=== PATIENT | male | born 1970 | race Caucasian/White ===

== ENCOUNTER 2018-04-10 16:52 | Inpatient (IN) | payer MEDICAID ==
[~2018-04-10] VITALS: Ht 182.9 cm; Wt 60.2 kg
[2018-04-10] MEDS ORDERED: LORazepam 2 MG/ML VIAL IM ONE (18:00)
[2018-04-10] MEDS ORDERED: HALOPERIDOL LACTATE 5 MG/ML VIAL IM ONE (18:00)
[2018-04-10] MEDS ORDERED: DiphenhydrAMINE HCL 50 MG/ML VIAL IM ONE (18:00)
[2018-04-10 18:23] LABS: BASOPHILS % (AUTO) 1.1 % (0.0-2.0); EOSINOPHILS % (AUTO) 1.4 % (1.0-6.0); HEMATOCRIT 38.4 % (41-53); LYMPHOCYTES # (AUTO) 2.5 K/uL (1.0-4.8); LYMPHOCYTES % (AUTO) 29.3 % (22.0-44.0); MEAN CORPUSCULAR HEMOGLOBIN 29.8 pg (26.0-34.0); MEAN CORPUSCULAR HGB CONC 33.8 G/dL (31.0-37.0); MEAN CORPUSCULAR VOLUME 88 fL (80-100); MONOCYTES # (AUTO) 0.8 K/uL (0.1-1.0); MONOCYTES % (AUTO) 8.7 % (2.0-9.0); NEUTROPHILS # (AUTO) 5.2 K/uL (1.8-7.7); NEUTROPHILS % (AUTO) 59.5 % (40.0-70.0); PLATELET COUNT (AUTO) 203 K/uL (150-450); RED BLOOD CELL COUNT(AUTO) 4.36 MIL/uL (4.50-5.90); RED CELL DISTRIBUTION WIDTH 13.6 % (11.5-14.5)
[2018-04-10] MEDS ORDERED: ZOLPIDEM TARTRATE 10 MG TABLET PO PRN (18:45)
[2018-04-10 18:54] LABS: ANION GAP 13 mmol/L (8-16); CALCIUM, TOTAL 9.3 mg/dL (8.8-10.5); CARBON DIOXIDE 27 mmol/L (22-29); CHLORIDE 104 mmol/L (98-107); CREATININE 1.07 mg/dL (0.60-1.30); GLOMERULAR FILTR. RATE CALC > 60 mL/min (>60); GLUCOSE,RANDOM 81 mg/dL (70-110); POTASSIUM 4.2 mmol/L (3.5-5.1); SODIUM SERUM 144 mmol/L (136-145); UREA NITROGEN, BLOOD 16 mg/dL (7-18)
[2018-04-10 18:59] LABS: ALANINE AMINOTRANSFERASE 72 U/L (12-78); ALBUMIN 4.4 g/dL (3.4-5.0); ALKALINE PHOSPHATASE 88 U/L (46-116); ASPARTATE AMINOTRANSFERASE 120 U/L (15-37); BILIRUBIN,TOTAL 0.7 mg/dL (0.1-1.0); TOTAL PROTEIN, SERUM 7.6 g/dL (6.4-8.2)
[2018-04-10] MEDS ORDERED: IBUPROFEN 400 MG TABLET PO PRN (19:00)
[2018-04-10] MEDS ORDERED: ACETAMINOPHEN 325 MG TABLET PO PRN (19:00)
[2018-04-11 00:32] VITALS: BP 115/59
[2018-04-11] MEDS ORDERED: LOPERAMIDE HCL 2 MG CAPSULE PO PRN (07:00)
[2018-04-11] MEDS ORDERED: GuaiFENesin/D-METHORPHAN [SUGAR-FREE] 200-20MG/10 ML SYRUP UDCUP PO PRN (07:00)
[2018-04-11] MEDS ORDERED: ACETAMINOPHEN 325 MG TABLET PO PRN (07:00)
[2018-04-11] MEDS ORDERED: IBUPROFEN 400 MG TABLET PO PRN (07:00)
[2018-04-11] MEDS ORDERED: MAGNESIUM HYDROXIDE SUSPENSION 30 ML UDCUP PO PRN (07:00)
[2018-04-11] MEDS ORDERED: ONDANSETRON HCL 4 MG TABLET PO PRN (07:00)
[2018-04-11] MEDS ORDERED: DOCUSATE SODIUM 100 MG CAPSULE PO PRN (07:00)
[2018-04-11] MEDS ORDERED: ALBUTEROL SULFATE HFA 90 MCG/PUFF 8 GM INHALER IH PRN (07:00)
[2018-04-11] MEDS ORDERED: CloNIDine HCL 0.1 MG TABLET PO PRN (07:00)
[2018-04-11] MEDS ORDERED: PETROLATUM,WHITE 71 GM JELLY TP PRN (07:00)
[2018-04-11] MEDS ORDERED: MAG HYDROX/AL HYDROX/SIMETH ES 30 ML SUSPENSION UDCUP PO PRN (07:00)
[2018-04-11 08:08] VITALS: BP 112/64
[2018-04-11 08:47] LABS: EOSINOPHILS % (AUTO) 2.8 % (1.0-6.0); HEMATOCRIT 43.7 % (41-53); HEMOGLOBIN 14.5 g/dL (13.5-17.5); LYMPHOCYTES # (AUTO) 2.1 K/uL (1.0-4.8); LYMPHOCYTES % (AUTO) 38.4 % (22.0-44.0); MEAN CORPUSCULAR HEMOGLOBIN 29.8 pg (26.0-34.0); MEAN CORPUSCULAR HGB CONC 33.3 G/dL (31.0-37.0); MEAN CORPUSCULAR VOLUME 90 fL (80-100); MONOCYTES # (AUTO) 0.4 K/uL (0.1-1.0); MONOCYTES % (AUTO) 7.3 % (2.0-9.0); NEUTROPHILS # (AUTO) 2.8 K/uL (1.8-7.7); NEUTROPHILS % (AUTO) 50.5 % (40.0-70.0); PLATELET COUNT (AUTO) 223 K/uL (150-450); RED BLOOD CELL COUNT(AUTO) 4.87 MIL/uL (4.50-5.90); RED CELL DISTRIBUTION WIDTH 14.1 % (11.5-14.5)
[2018-04-11 08:56] LABS: HEMOGLOBIN A1C 5.3 % (4.5-6.2)
[2018-04-11 09:12] LABS: ALANINE AMINOTRANSFERASE 76 U/L (12-78); ALBUMIN 4.6 g/dL (3.4-5.0); ALKALINE PHOSPHATASE 85 U/L (46-116); ANION GAP 7 mmol/L (8-16); ASPARTATE AMINOTRANSFERASE 119 U/L (15-37); BILIRUBIN,TOTAL 0.9 mg/dL (0.1-1.0); CALCIUM, TOTAL 9.1 mg/dL (8.8-10.5); CARBON DIOXIDE 31 mmol/L (22-29); CHLORIDE 103 mmol/L (98-107); CHOL/HDL RATIO 1.7 (4.2-7.3); CHOLESTEROL 152 mg/dL (131-200); CREATININE 0.84 mg/dL (0.60-1.30); GLOMERULAR FILTR. RATE CALC > 60 mL/min (>60); GLUCOSE,RANDOM 81 mg/dL (70-110); HDL CHOLESTEROL 90 mg/dL (40-60); LDL CHOL (CALC.) 55 mg/dL (0-130); POTASSIUM 3.8 mmol/L (3.5-5.1); SODIUM SERUM 141 mmol/L (136-145); THYROID STIMULATING HORMONE 1.77 uIU/mL (0.36-3.74); TOTAL PROTEIN, SERUM 7.9 g/dL (6.4-8.2); TRIGLYCERIDES 37 mg/dL (15-150); UREA NITROGEN, BLOOD 16 mg/dL (7-18)
[2018-04-11] MEDS: HALOPERIDOL 5 MG TABLET PO PRN ×3 (12:24→20:43)
[2018-04-11] MEDS: LORazepam 2 MG TABLET PO PRN ×3 (12:24→20:44)
[2018-04-11 16:41] VITALS: BP 122/81
[2018-04-11] MEDS: NICOTINE 14 MG/24 HOUR PATCH TD PRN (20:14)
[2018-04-11 20:43] VITALS: BP 118/82
[2018-04-11] MEDS ORDERED: PALIPERIDONE 3 MG ER TABLET PO SCH (21:00)
[2018-04-12 04:27] VITALS: BP 115/68
[2018-04-12 08:10] VITALS: BP 107/67
[2018-04-12] MEDS: NICOTINE 14 MG/24 HOUR PATCH TD PRN (09:50)
[2018-04-12 16:00] VITALS: BP 108/81
[2018-04-12] MEDS: PALIPERIDONE 3 MG ER TABLET PO SCH (20:54)
[2018-04-13 01:44] VITALS: BP 105/68
[2018-04-13 08:12] VITALS: BP 121/61
[2018-04-13] MEDS: LORazepam 2 MG TABLET PO PRN ×2 (09:06→16:13)
[2018-04-13] MEDS: HALOPERIDOL 5 MG TABLET PO PRN ×2 (09:06→16:13)
[2018-04-13] MEDS: NICOTINE 14 MG/24 HOUR PATCH TD PRN (10:43)
[2018-04-13 16:31] VITALS: BP 112/62
[2018-04-13] MEDS: PALIPERIDONE 3 MG ER TABLET PO SCH (20:33)
[2018-04-14 02:00] VITALS: BP 116/71
[2018-04-14 08:35] VITALS: BP 109/72
[2018-04-14] MEDS ORDERED: PALI3 PO (09:24)
[2018-04-14] MEDS ORDERED: PALI6 PO (09:52)
== END 2018-04-14 10:40 | disposition home or self-care (01) | DRG 750 ==
LOC: EMS 16:53 → B3A 22:38
PROVIDERS: ADMIT Psychiatry & Neurology Psychiatry; ATTEND Psychiatry & Neurology Psychiatry
DX: F20.0 Paranoid schizophrenia (principal); R74.0 Nonspecific elevation of levels of transaminase and lactic acid dehydrogenase [LDH]; D64.9 Anemia, unspecified; Z59.0 Homelessness; F17.210 Nicotine dependence, cigarettes, uncomplicated; R45.87 Impulsiveness
CPT/HCPCS: 80074; 83036; 84443; 96372; G0480; J1200; J1630; J2060

== ENCOUNTER 2018-04-17 10:08 | Emergency (ER) | payer MEDICAID ==
[~2018-04-17] VITALS: Ht 177.8 cm; Wt 74.0 kg
[~2018-04-17 10:08] MED LIST: PALI3 PO; PALI6 PO
[2018-04-17 11:41] VITALS: BP 115/87
== END 2018-04-17 11:42 | disposition home or self-care (01) ==
LOC: EMS 10:09
DX: F20.9 Schizophrenia, unspecified (principal); F17.210 Nicotine dependence, cigarettes, uncomplicated; F15.10 Other stimulant abuse, uncomplicated; Z79.899 Other long term (current) drug therapy
CPT/HCPCS: 99406

== ENCOUNTER 2018-04-17 12:03 | Inpatient (IN) | payer MEDICAID ==
[~2018-04-17] VITALS: Ht 172.7 cm; Wt 65.3 kg
[2018-04-17] MEDS ORDERED: HALOPERIDOL LACTATE 5 MG/ML VIAL IM ONE (12:15)
[2018-04-17] MEDS ORDERED: LORazepam 2 MG/ML VIAL IM ONE (12:15)
[2018-04-17] MEDS ORDERED: DiphenhydrAMINE HCL 50 MG/ML VIAL IM ONE (12:15)
[2018-04-17 12:30] LABS: BASOPHILS % (AUTO) 0.6 % (0.0-2.0); EOSINOPHILS % (AUTO) 0.3 % (1.0-6.0); HEMATOCRIT 37.9 % (41-53); HEMOGLOBIN 12.8 g/dL (13.5-17.5); LYMPHOCYTES # (AUTO) 1.1 K/uL (1.0-4.8); LYMPHOCYTES % (AUTO) 16.3 % (22.0-44.0); MEAN CORPUSCULAR HEMOGLOBIN 29.9 pg (26.0-34.0); MEAN CORPUSCULAR HGB CONC 33.7 G/dL (31.0-37.0); MEAN CORPUSCULAR VOLUME 89 fL (80-100); MONOCYTES # (AUTO) 0.5 K/uL (0.1-1.0); MONOCYTES % (AUTO) 7.7 % (2.0-9.0); NEUTROPHILS % (AUTO) 75.1 % (40.0-70.0); PLATELET COUNT (AUTO) 180 K/uL (150-450); RED BLOOD CELL COUNT(AUTO) 4.26 MIL/uL (4.50-5.90); RED CELL DISTRIBUTION WIDTH 13.8 % (11.5-14.5)
[2018-04-17 12:39] LABS: ANION GAP 11 mmol/L (8-16); CALCIUM, TOTAL 9.1 mg/dL (8.8-10.5); CARBON DIOXIDE 27 mmol/L (22-29); CHLORIDE 100 mmol/L (98-107); CREATININE 0.85 mg/dL (0.60-1.30); GLOMERULAR FILTR. RATE CALC > 60 mL/min (>60); GLUCOSE,RANDOM 86 mg/dL (70-110); POTASSIUM 3.5 mmol/L (3.5-5.1); SODIUM SERUM 138 mmol/L (136-145); UREA NITROGEN, BLOOD 24 mg/dL (7-18)
[2018-04-17 12:45] LABS: ALANINE AMINOTRANSFERASE 47 U/L (12-78); ALBUMIN 4.3 g/dL (3.4-5.0); ALKALINE PHOSPHATASE 85 U/L (46-116); ASPARTATE AMINOTRANSFERASE 55 U/L (15-37); BILIRUBIN,TOTAL 0.6 mg/dL (0.1-1.0); TOTAL PROTEIN, SERUM 7.4 g/dL (6.4-8.2)
[2018-04-17 13:20] LABS: LITHIUM < 0.20 mmol/L (0.60-1.20)
[2018-04-17] MEDS ORDERED: ACETAMINOPHEN 325 MG TABLET PO PRN (13:45)
[2018-04-17] MEDS ORDERED: IBUPROFEN 400 MG TABLET PO PRN ×2 (13:45→17:15)
[2018-04-17 16:44] VITALS: BP 130/78
[2018-04-17] MEDS ORDERED: CloNIDine HCL 0.1 MG TABLET PO PRN (17:15)
[2018-04-17] MEDS ORDERED: MAGNESIUM HYDROXIDE SUSPENSION 30 ML UDCUP PO PRN (17:15)
[2018-04-17] MEDS ORDERED: ONDANSETRON HCL 4 MG TABLET PO PRN (17:15)
[2018-04-17] MEDS ORDERED: PETROLATUM,WHITE 71 GM JELLY TP PRN (17:15)
[2018-04-17] MEDS ORDERED: LOPERAMIDE HCL 2 MG CAPSULE PO PRN (17:15)
[2018-04-17] MEDS ORDERED: GuaiFENesin/D-METHORPHAN [SUGAR-FREE] 200-20MG/10 ML SYRUP UDCUP PO PRN (17:15)
[2018-04-17] MEDS ORDERED: ALBUTEROL SULFATE HFA 90 MCG/PUFF 8 GM INHALER IH PRN (17:15)
[2018-04-17] MEDS ORDERED: MAG HYDROX/AL HYDROX/SIMETH ES 30 ML SUSPENSION UDCUP PO PRN (17:15)
[2018-04-17] MEDS ORDERED: DOCUSATE SODIUM 100 MG CAPSULE PO PRN (17:15)
[2018-04-18 06:29] VITALS: BP 108/65
[2018-04-18] MEDS: HALOPERIDOL 5 MG TABLET PO PRN ×2 (08:02→16:09)
[2018-04-18] MEDS: LORazepam 2 MG TABLET PO PRN ×2 (08:02→16:09)
[2018-04-18 08:03] VITALS: BP 110/68
[2018-04-18 08:29] LABS: BASOPHILS % (AUTO) 0.8 % (0.0-2.0); EOSINOPHILS % (AUTO) 2.1 % (1.0-6.0); HEMATOCRIT 43.4 % (41-53); HEMOGLOBIN 14.7 g/dL (13.5-17.5); LYMPHOCYTES # (AUTO) 1.9 K/uL (1.0-4.8); LYMPHOCYTES % (AUTO) 34.6 % (22.0-44.0); MEAN CORPUSCULAR HEMOGLOBIN 30.2 pg (26.0-34.0); MEAN CORPUSCULAR HGB CONC 33.8 G/dL (31.0-37.0); MEAN CORPUSCULAR VOLUME 89 fL (80-100); MONOCYTES # (AUTO) 0.5 K/uL (0.1-1.0); MONOCYTES % (AUTO) 8.8 % (2.0-9.0); NEUTROPHILS % (AUTO) 53.7 % (40.0-70.0); PLATELET COUNT (AUTO) 218 K/uL (150-450); RED BLOOD CELL COUNT(AUTO) 4.86 MIL/uL (4.50-5.90); RED CELL DISTRIBUTION WIDTH 13.9 % (11.5-14.5)
[2018-04-18 08:40] LABS: HEMOGLOBIN A1C 5.5 % (4.5-6.2)
[2018-04-18 08:52] LABS: ALANINE AMINOTRANSFERASE 57 U/L (12-78); ALBUMIN 4.5 g/dL (3.4-5.0); ALKALINE PHOSPHATASE 93 U/L (46-116); ANION GAP 11 mmol/L (8-16); ASPARTATE AMINOTRANSFERASE 92 U/L (15-37); BILIRUBIN,TOTAL 0.8 mg/dL (0.1-1.0); CARBON DIOXIDE 28 mmol/L (22-29); CHLORIDE 98 mmol/L (98-107); CHOL/HDL RATIO 1.8 (4.2-7.3); CHOLESTEROL 171 mg/dL (131-200); CREATININE 0.69 mg/dL (0.60-1.30); GLOMERULAR FILTR. RATE CALC > 60 mL/min (>60); GLUCOSE,RANDOM 58 mg/dL (70-110); HDL CHOLESTEROL 93 mg/dL (40-60); LDL CHOL (CALC.) 74 mg/dL (0-130); POTASSIUM 3.6 mmol/L (3.5-5.1); SODIUM SERUM 137 mmol/L (136-145); THYROID STIMULATING HORMONE 1.79 uIU/mL (0.36-3.74); TRIGLYCERIDES 20 mg/dL (15-150); UREA NITROGEN, BLOOD 17 mg/dL (7-18)
[2018-04-18 16:00] VITALS: BP 116/67
[2018-04-18] MEDS: NICOTINE 14 MG/24 HOUR PATCH TD PRN (16:10)
[2018-04-18] MEDS ORDERED: PALIPERIDONE 6 MG ER TABLET PO SCH (21:00)
[2018-04-19 00:51] VITALS: BP 110/62
[2018-04-19 08:42] VITALS: BP 103/67
[2018-04-19] MEDS: NICOTINE 14 MG/24 HOUR PATCH TD PRN (11:00)
[2018-04-19 16:15] VITALS: BP 109/80
[2018-04-19] MEDS: HALOPERIDOL 5 MG TABLET PO PRN (16:25)
[2018-04-19] MEDS: LORazepam 2 MG TABLET PO PRN ×2 (16:25→20:43)
[2018-04-19 17:10] VITALS: BP 109/80
[2018-04-19] MEDS: ZOLPIDEM TARTRATE 10 MG TABLET PO PRN (20:43)
[2018-04-19] MEDS: PALIPERIDONE 3 MG ER TABLET PO SCH (20:43)
[2018-04-20 01:16] VITALS: BP 112/64
[2018-04-20 08:02] VITALS: BP 122/74
[2018-04-20] MEDS: NICOTINE 14 MG/24 HOUR PATCH TD SCH (08:07)
[2018-04-20] MEDS: LORazepam 2 MG TABLET PO PRN (08:07)
[2018-04-20] MEDS: HALOPERIDOL 5 MG TABLET PO PRN (08:08)
[2018-04-20 16:32] VITALS: BP 107/78
[2018-04-20] MEDS: PALIPERIDONE 3 MG ER TABLET PO SCH (20:35)
[2018-04-21 05:35] VITALS: BP 102/75
[2018-04-21 08:03] VITALS: BP 110/74
[2018-04-21] MEDS: LORazepam 2 MG TABLET PO PRN (08:04)
[2018-04-21] MEDS: NICOTINE 14 MG/24 HOUR PATCH TD SCH (08:04)
[2018-04-21] MEDS: HALOPERIDOL 5 MG TABLET PO PRN (08:04)
[2018-04-21 16:00] VITALS: BP 106/72
[2018-04-21] MEDS: PALIPERIDONE 3 MG ER TABLET PO SCH (20:02)
[2018-04-22 02:08] VITALS: BP 118/71
[2018-04-22 08:12] VITALS: BP 106/73
[2018-04-22] MEDS: NICOTINE 14 MG/24 HOUR PATCH TD SCH (08:13)
[2018-04-22] MEDS: LORazepam 2 MG TABLET PO PRN ×2 (09:54→20:15)
[2018-04-22] MEDS ORDERED: PALIPERIDONE PALMITATE 234 MG/1.5 ML SYRINGE IM SCH (12:00)
[2018-04-22 16:00] VITALS: BP 112/68
[2018-04-22] MEDS: ZOLPIDEM TARTRATE 10 MG TABLET PO PRN (20:15)
[2018-04-22] MEDS: PALIPERIDONE 6 MG ER TABLET PO SCH (20:15)
[2018-04-23 03:42] VITALS: BP 112/75
[2018-04-23 08:03] VITALS: BP 116/71
[2018-04-23] MEDS: NICOTINE 14 MG/24 HOUR PATCH TD SCH (08:28)
[2018-04-23] MEDS: LORazepam 2 MG TABLET PO PRN ×2 (08:29→20:34)
[2018-04-23 16:00] VITALS: BP 106/75
[2018-04-23] MEDS: ZOLPIDEM TARTRATE 10 MG TABLET PO PRN (20:34)
[2018-04-23] MEDS: PALIPERIDONE 6 MG ER TABLET PO SCH (20:34)
[2018-04-24 05:27] VITALS: BP 114/80
[2018-04-24 08:07] VITALS: BP 113/69
[2018-04-24] MEDS: NICOTINE 14 MG/24 HOUR PATCH TD SCH (08:21)
[2018-04-24 16:46] VITALS: BP 113/64
[2018-04-24] MEDS: PALIPERIDONE 6 MG ER TABLET PO SCH (21:08)
[2018-04-24] MEDS: ZOLPIDEM TARTRATE 10 MG TABLET PO PRN (21:40)
[2018-04-25 00:42] VITALS: BP 109/62
[2018-04-25] MEDS: NICOTINE 14 MG/24 HOUR PATCH TD SCH (09:52)
[2018-04-25] MEDS ORDERED: PALI6 PO (15:54)
[2018-04-25 16:45] VITALS: BP 118/74
[2018-04-25] MEDS: PALIPERIDONE 6 MG ER TABLET PO SCH (20:40)
[2018-04-26 00:24] VITALS: BP 100/65
[2018-04-26] MEDS: NICOTINE 14 MG/24 HOUR PATCH TD SCH (08:41)
[2018-04-26 08:55] VITALS: BP 115/74
[2018-04-26] MEDS ORDERED: BENZOCAINE 10% 7 GM GEL TP PRN (09:00)
[2018-04-26 10:10] VITALS: BP 110/70
== END 2018-04-26 15:00 | disposition home or self-care (01) | DRG 750 ==
LOC: EMS 12:06 → B3A 15:17 → B2S 04-24 10:58
PROVIDERS: ADMIT Psychiatry & Neurology Psychiatry; ATTEND Psychiatry & Neurology Psychiatry
DX: F25.0 Schizoaffective disorder, bipolar type (principal); R45.851 Suicidal ideations; Z78.1 Physical restraint status; Z59.0 Homelessness; F10.10 Alcohol abuse, uncomplicated; F15.10 Other stimulant abuse, uncomplicated; R74.0 Nonspecific elevation of levels of transaminase and lactic acid dehydrogenase [LDH]; G44.209 Tension-type headache, unspecified, not intractable; F17.210 Nicotine dependence, cigarettes, uncomplicated; F41.9 Anxiety disorder, unspecified; Z91.19 Patient's noncompliance with other medical treatment and regimen; Z28.21 Immunization not carried out because of patient refusal; Z79.899 Other long term (current) drug therapy; Z71.6 Tobacco abuse counseling; Z71.51 Drug abuse counseling and surveillance of drug abuser; Z71.41 Alcohol abuse counseling and surveillance of alcoholic
CPT/HCPCS: 83036; 84443; 87081; 96372; 99406; G0480; J1200; J1630; J2060

== ENCOUNTER 2019-08-02 14:06 | Inpatient (IN) | payer MEDICAID ==
[~2019-08-02] VITALS: Ht 182.9 cm; Wt 63.6 kg
[~2019-08-02 14:06] MED LIST changes: -PALI3 PO
[2019-08-02] MEDS ORDERED: ZOLPIDEM TARTRATE 10 MG TABLET PO PRN (17:15)
[2019-08-02 17:48] VITALS: BP 131/72
[2019-08-02] MEDS ORDERED: INFLUENZA VIRUS VACCINE QVS 2019-20 (3YR+)/PF 60 MCG/0.5 ML SYRINGE IM ONE (19:00)
[2019-08-03 04:19] VITALS: BP 111/66
[2019-08-03 08:24] VITALS: BP 109/67
[2019-08-03] MEDS ORDERED: DOCUSATE SODIUM 100 MG CAPSULE PO PRN (12:00)
[2019-08-03] MEDS ORDERED: ONDANSETRON HCL 4 MG TABLET PO PRN (12:00)
[2019-08-03] MEDS ORDERED: IBUPROFEN 400 MG TABLET PO PRN (12:00)
[2019-08-03] MEDS ORDERED: NICOTINE 14 MG/24 HOUR PATCH TD PRN (12:00)
[2019-08-03] MEDS ORDERED: ALBUTEROL SULFATE HFA 90 MCG/PUFF 8 GM INHALER IH PRN (12:00)
[2019-08-03] MEDS ORDERED: PETROLATUM,WHITE 28 GM JELLY TP PRN (12:00)
[2019-08-03] MEDS ORDERED: LOPERAMIDE HCL 2 MG CAPSULE PO PRN (12:00)
[2019-08-03] MEDS ORDERED: GuaiFENesin/D-METHORPHAN [SUGAR-FREE] 200-20MG/10 ML SYRUP UDCUP PO PRN (12:00)
[2019-08-03] MEDS ORDERED: ACETAMINOPHEN 325 MG TABLET PO PRN (12:00)
[2019-08-03] MEDS ORDERED: MAGNESIUM HYDROXIDE SUSPENSION 30 ML UDCUP PO PRN (12:00)
[2019-08-03] MEDS ORDERED: CloNIDine HCL 0.1 MG TABLET PO PRN (12:00)
[2019-08-03] MEDS ORDERED: MAG HYDROX/AL HYDROX/SIMETH ES 30 ML SUSPENSION UDCUP PO PRN (12:00)
[2019-08-03] MEDS: HALOPERIDOL 5 MG TABLET PO PRN ×2 (12:59→17:56)
[2019-08-03] MEDS: LORazepam 1 MG TABLET PO PRN ×3 (12:59→20:29)
[2019-08-03 16:00] VITALS: BP 113/77
[2019-08-04 02:43] VITALS: BP 100/60
[2019-08-04 07:43] LABS: BASOPHILS % (AUTO) 0.7 % (0.0-2.0); HEMATOCRIT 40.8 % (41-53); HEMOGLOBIN 13.6 g/dL (13.5-17.5); LYMPHOCYTES # (AUTO) 2.1 K/uL (1.0-4.8); LYMPHOCYTES % (AUTO) 45.3 % (22.0-44.0); MEAN CORPUSCULAR HEMOGLOBIN 29.8 pg (26.0-34.0); MEAN CORPUSCULAR HGB CONC 33.2 G/dL (31.0-37.0); MEAN CORPUSCULAR VOLUME 90 fL (80-100); MONOCYTES # (AUTO) 0.4 K/uL (0.1-1.0); MONOCYTES % (AUTO) 8.6 % (2.0-9.0); NEUTROPHILS # (AUTO) 1.9 K/uL (1.8-7.7); NEUTROPHILS % (AUTO) 41.4 % (40.0-70.0); PLATELET COUNT (AUTO) 177 K/uL (150-450); RED BLOOD CELL COUNT(AUTO) 4.55 MIL/uL (4.50-5.90); RED CELL DISTRIBUTION WIDTH 13.8 % (11.5-14.5)
[2019-08-04 07:56] LABS: HEMOGLOBIN A1C 5.8 % (3.8-5.6)
[2019-08-04 08:09] LABS: ALANINE AMINOTRANSFERASE 53 U/L (12-78); ALBUMIN 3.2 g/dL (3.4-5.0); ALKALINE PHOSPHATASE 62 U/L (46-116); ANION GAP 5 mmol/L (8-16); ASPARTATE AMINOTRANSFERASE 72 U/L (15-37); BILIRUBIN,TOTAL 0.3 mg/dL (0.1-1.0); CALCIUM, TOTAL 9.3 mg/dL (8.8-10.5); CARBON DIOXIDE 31 mmol/L (22-29); CHLORIDE 106 mmol/L (98-107); CHOL/HDL RATIO 2.4 (4.2-7.3); CHOLESTEROL 141 mg/dL (131-200); CREATININE 0.77 mg/dL (0.60-1.30); FREE T4 (FREE THYROXINE) 1.15 ng/dL (0.76-1.46); GLOMERULAR FILTR. RATE CALC > 60 mL/min (>60); GLUCOSE,RANDOM 85 mg/dL (70-110); HDL CHOLESTEROL 58 mg/dL (40-60); LDL CHOL (CALC.) 75 mg/dL (0-130); POTASSIUM 4.4 mmol/L (3.5-5.1); SODIUM SERUM 142 mmol/L (136-145); THYROID STIMULATING HORMONE 1.33 uIU/mL (0.36-3.74); TOTAL PROTEIN, SERUM 6.3 g/dL (6.4-8.2); TRIGLYCERIDES 42 mg/dL (15-150); UREA NITROGEN, BLOOD 12 mg/dL (7-18)
[2019-08-04 08:37] VITALS: BP 107/64
== END 2019-08-04 14:00 | disposition home or self-care (01) | DRG 750 ==
LOC: B3A 17:29
PROVIDERS: ADMIT Psychiatry & Neurology Psychiatry; ATTEND Psychiatry & Neurology Psychiatry
DX: F25.9 Schizoaffective disorder, unspecified (principal); R45.850 Homicidal ideations; R10.13 Epigastric pain; F41.9 Anxiety disorder, unspecified
CPT/HCPCS: 83036; 84436; 84439; 84443; 87081